=== PATIENT | male | born 1945 | race Two or more races ===

== ENCOUNTER 2022-10-26 10:15 | Inpatient (IN) | payer OTHER ==
[~2022-10-26] VITALS: Ht 172.7 cm; Wt 86.6 kg
[2022-10-26] MEDS ORDERED: CHILDREN'S ASPI81 MG PO (15:44)
[2022-10-26] MEDS ORDERED: INDAPAMIDE2.5 MG PO (15:44)
[2022-10-26] MEDS ORDERED: TOPROL XL50 M1 PO (15:44)
[2022-10-26] MEDS ORDERED: FENOFIBRATE150 MG PO (15:44)
[2022-10-26] MEDS ORDERED: DAFLONEX-XL 11300 MG PO (15:45)
[2022-10-26] MEDS ORDERED: METFORMIN HCL500 M3 PO (15:46)
[2022-10-26] MEDS ORDERED: B-STRESS CAP2000 MCG PO (15:46)
[2022-11-01] MEDS ORDERED: SIMVASTATIN20 MG (13:17)
[2022-11-08] MEDS ORDERED: TRAM1TAB98 PO (12:01)
[2022-11-08] MEDS ORDERED: HYOSCYAMINE0.125 M1 SL (12:01)
[2022-11-08] MEDS ORDERED: LEVOFLOXACIN500 MG PO (12:02)
[2022-11-08] MEDS ORDERED: PEPCID AC20 MG PO (12:03)
== END 2022-11-08 14:47 | disposition home or self-care (01) | DRG 330 ==
LOC: ADM 10:15 → EDSTATUS 10:15 → O/R 11-01 06:02 → SURH 11-01 10:15 → SURG 11-01 11:50 → SURH 11-02 11:33
PROVIDERS: ADMIT Surgery; ATTEND Surgery
PROC: 07BB4ZZ Excision of Mesenteric Lymphatic, Percutaneous Endoscopic Approach (ICD-10-PCS; 2022-11-01)
PROC: 0DTF4ZZ Resection of Right Large Intestine, Percutaneous Endoscopic Approach (ICD-10-PCS; principal; 2022-11-01 11:30)
PROC: 4A12X4Z Monitoring of Cardiac Electrical Activity, External Approach (ICD-10-PCS; 2022-11-04)
PROC: 30233N1 Transfusion of Nonautologous Red Blood Cells into Peripheral Vein, Percutaneous Approach (ICD-10-PCS; 2022-11-04)
PROC: BW24YZZ Computerized Tomography (CT Scan) of Chest and Abdomen using Other Contrast (ICD-10-PCS; 2022-11-05)
PROC: BW21YZZ Computerized Tomography (CT Scan) of Abdomen and Pelvis using Other Contrast (ICD-10-PCS; 2022-11-05)
DX: C18.2 Malignant neoplasm of ascending colon (principal); K56.7 Ileus, unspecified; K91.89 Other postprocedural complications and disorders of digestive system; K92.2 Gastrointestinal hemorrhage, unspecified; D64.9 Anemia, unspecified; R19.4 Change in bowel habit; I11.9 Hypertensive heart disease without heart failure; I73.9 Peripheral vascular disease, unspecified; E11.9 Type 2 diabetes mellitus without complications

== ENCOUNTER 2023-03-28 05:48 | Day surgery (SDC) | payer OTHER ==
[~2023-03-28 05:48] MED LIST: B-STRESS CAP2000 MCG PO; CHILDREN'S ASPI81 MG PO; DAFLONEX-XL 11300 MG PO; FENOFIBRATE150 MG PO; HYOSCYAMINE0.125 M1 SL; INDAPAMIDE2.5 MG PO; LEVOFLOXACIN500 MG PO; METFORMIN HCL500 M3 PO; PEPCID AC20 MG PO; SIMVASTATIN20 MG; TOPROL XL50 M1 PO; TRAM1TAB98 PO
[2023-03-28] MEDS ORDERED: TRAM1TAB98 PO (08:08)
== END 2023-03-28 10:30 | disposition home or self-care (01) ==
LOC: CIR.AMB 05:48
PROVIDERS: ATTEND Surgery
DX: C18.2 Malignant neoplasm of ascending colon (principal); R19.4 Change in bowel habit; Z20.822 Contact with and (suspected) exposure to COVID-19

== ENCOUNTER 2025-03-11 06:42 | Day surgery (SDC) | payer OTHER ==
[2025-03-11] MEDS ORDERED: CEFAZOLIN SODIUM 1,000 MG VIAL ONE (09:09)
[2025-03-11] MEDS ORDERED: LIDOCAINE HCL 1%/EPINEPHRINE 20ML VIAL IJ ONE (11:59)
[2025-03-11] MEDS ORDERED: BUPIVACAINE HCL/Mpf 0.5% 10ML VIAL ONE (11:59)
[2025-03-11] MEDS ORDERED: TRAM1TAB98 PO (12:09)
== END 2025-03-11 14:50 | disposition home or self-care (01) ==
LOC: CIR.AMB 06:42
PROVIDERS: ATTEND Surgery
DX: T82.594A Other mechanical complication of infusion catheter, initial encounter (principal); C18.2 Malignant neoplasm of ascending colon; Z91.018 Allergy to other foods